=== PATIENT | female | born 1960 | race Caucasian/White ===

== ENCOUNTER 2018-08-03 00:08 | Emergency (ER) | payer OTHER ==
[~2018-08-03] VITALS: Ht 160 cm; Wt 77.1 kg
[~2018-08-03 00:08] MED LIST: LYRICA50 MG; PEPCID40 MG PO; SYNTHROID50 MCG; ZOFRAN4 MG PO
[2018-08-03] MEDS ORDERED: KETO10TA2 PO (02:26)
[2018-08-03] MEDS ORDERED: BUTALB-ACETAMI1 EACH PO (02:26)
== END 2018-08-03 02:38 | disposition home or self-care (01) ==
LOC: ER 00:08
DX: G43.909 Migraine, unspecified, not intractable, without status migrainosus (principal)

== ENCOUNTER 2020-07-31 16:51 | Emergency (ER) | payer OTHER ==
[~2020-07-31] VITALS: Ht 160 cm; Wt 79.8 kg
[~2020-07-31 16:51] MED LIST changes: +BUTALB-ACETAMI1 EACH PO; +KETO10TA2 PO
== END 2020-07-31 18:56 | disposition home or self-care (01) ==
LOC: ER 16:51
DX: J34.89 Other specified disorders of nose and nasal sinuses (principal); T50.995A Adverse effect of other drugs, medicaments and biological substances, initial encounter; Y92.89 Other specified places as the place of occurrence of the external cause

== ENCOUNTER 2021-07-16 15:34 | Emergency (ER) | payer OTHER ==
[~2021-07-16] VITALS: Ht 157.5 cm; Wt 81.6 kg
[2021-07-16] MEDS ORDERED: LYRICA50 MG PO (15:55)
[2021-07-16] MEDS ORDERED: SYNTHROID50 MCG PO (15:55)
[2021-07-16] MEDS ORDERED: NORFLEX100MG PO (20:00)
[2021-07-16] MEDS ORDERED: KETO10TA2 PO (20:00)
== END 2021-07-16 20:04 | disposition home or self-care (01) ==
LOC: ER 15:34
DX: M25.511 Pain in right shoulder (principal)

== ENCOUNTER 2022-03-06 18:17 | Emergency (ER) | payer OTHER ==
[~2022-03-06] VITALS: Ht 160 cm; Wt 81.6 kg
[~2022-03-06 18:17] MED LIST changes: +LYRICA50 MG PO; +NORFLEX100MG PO; +SYNTHROID50 MCG PO
== END 2022-03-06 21:41 | disposition home or self-care (01) ==
LOC: ER 18:17
DX: M94.0 Chondrocostal junction syndrome [Tietze] (principal)

== ENCOUNTER 2023-01-28 12:37 | Emergency (ER) | payer OTHER ==
[~2023-01-28] VITALS: Ht 157.5 cm; Wt 78.5 kg
== END 2023-01-28 14:47 | disposition home or self-care (01) ==
LOC: ER 12:37
DX: E03.9 Hypothyroidism, unspecified (principal)

== ENCOUNTER 2023-01-31 08:56 | Emergency (ER) | payer OTHER ==
[~2023-01-31] VITALS: Ht 160 cm; Wt 79.4 kg
== END 2023-01-31 10:38 | disposition home or self-care (01) ==
LOC: ER 08:56
DX: B35.4 Tinea corporis (principal); I10 Essential (primary) hypertension; Z91.038 Other insect allergy status

== ENCOUNTER 2023-09-13 07:30 | Emergency (ER) | payer OTHER ==
[~2023-09-13] VITALS: Ht 152.4 cm; Wt 79.4 kg
[2023-09-13] MEDS ORDERED: AVAPRO75 MG PO (07:57)
[2023-09-13 09:16] LABS: PH,URINE 6.5 (5.0-8.0); URINE APPEARANCE Clear; URINE BILIRRUBIN Small (NEGATIVE); URINE BLOOD Negative; URINE COLOR Dark Yellow; URINE GLUCOSE Negative (NEGATIVE); URINE LEUKOCYTE Moderate; URINE NITRATE Negative; URINE PROTEIN Trace (NEGATIVE)
[2023-09-13 09:17] LABS: URINE BACTERIA 458.5 uL (0.0-1933); URINE EPITHELIAL CELLS 21.9 uL (0.0-38.8); URINE RBC 18.2 uL (0.0-20.8); URINE WBC 32.4 uL (0.0-23.2)
[2023-09-13 09:47] LABS: HEMATOCRIT 36.4 % (36.0-45.00); HEMOGLOBIN 12.1 g/dL (12.0-15.00); MEAN CELL VOLUME 85.7 fL (80.00-100.00); MEAN CORPUSCULAR HEMOGLOBIN 28.6 pg (27.00-32.0); MEAN CORPUSCULAR HGB CONC 33.4 g/dl (32.0-36.0); PLATELET COUNT 284 K/uL (150-450); RED BLOOD COUNT 4.25 M/uL (4.00-6.00); RED CELL DISTRIBUTION WIDTH 14.2 % (11.5-14.5)
[2023-09-13 09:50] LABS: CALCIUM 8.7 mg/dL (8.5-10.1); CREATININE SERUM 0.7 mg/dL (0.55-1.02); GFR 84.51; POTASSIUM 3.24 mEq/L (3.5-5.1)
== END 2023-09-13 14:03 | disposition home or self-care (01) ==
LOC: ER 07:30
PROVIDERS: Emergency Medicine
DX: R10.31 Right lower quadrant pain (principal); E03.9 Hypothyroidism, unspecified; I10 Essential (primary) hypertension; N28.1 Cyst of kidney, acquired; K76.89 Other specified diseases of liver

== ENCOUNTER 2025-01-24 23:17 | Emergency (ER) | payer OTHER ==
[~2025-01-24] VITALS: Ht 160 cm; Wt 74.8 kg
[~2025-01-24 23:17] MED LIST changes: +AVAPRO75 MG PO
[2025-01-24] MEDS ORDERED: SIMVASTATIN20 MG PO (23:44)
[2025-01-24] MEDS ORDERED: CHOLESTYRAMINE P4 GM PO (23:45)
[2025-01-25] MEDS ORDERED: CLONIDINE HCL 0.1 MG TABLET PO ONE (01:03)
[2025-01-25] MEDS ORDERED: CLONIDINE HCL 0.1 MG TABLET PO STA (01:03)
== END 2025-01-25 02:10 | disposition home or self-care (01) ==
LOC: ER 23:18
DX: I10 Essential (primary) hypertension (principal)